=== PATIENT | male | born 1980 | race Caucasian/White ===

== ENCOUNTER 2018-07-16 19:19 | Emergency (ER) | payer OTHER ==
--- NOTE | 2018-07-16 19:32 | PDOC ---
Rapid Medical Evaluation Time Seen by Provider: 07/16/18 19:29 Medical Evaluation: 07/16/18 19:30 HPI: Rash on R arm x3 days PE: Raised spots difficult to see R upper arm ORDERS: Nothing Discharge Disposition - Diagnosis Rash and nonspecific skin eruption - Referrals - Patient Instructions - Post Discharge Activity
[2018-07-16 19:36] VITALS: BP 139/90; PULSE 64; TEMP 97.5; BMI 31.5
--- NOTE | 2018-07-16 20:17 | PDOC ---
History of Present Illness - General Chief Complaint: Rash Stated Complaint: ARM PAIN/RASH Time Seen by Provider: 07/16/18 19:29 History Source: Patient Exam Limitations: No Limitations - History of Present Illness Initial Comments: 07/16/18 20:29 Chief complaint: Rash Patient 38-year-old male who has rash to right upper arm for 3 days, patient has a tattoo there which is been there a while, shaves his arm. He was seen by sub arc operator week and a half ago, was starting to get better but now has gotten worse in the last 3 days. No fever and now it's itchy. She started Keflex yesterday Patient went to urgent care night and was given a prescription for Valtrex. Patient was concerned and came to the ER. GENERAL/CONSTITUTIONAL: No fever, weakness. dizziness HEAD, EYES, EARS, NOSE AND THROAT: No change in vision. No ear pain or discharge. No sore throat. CARDIOVASCULAR: No chest pain RESPIRATORY: No shortness of breath or cough GASTROINTESTINAL: No pain, nausea, vomiting, diarrhea or constipation GENITOURINARY: No dysuria MUSCULOSKELETAL: No neck or back pain SKIN: +rash NEUROLOGIC: No headache, vertigo, loss of consciousness, or loss of sensation. GENERAL: The patient is awake, alert, and fully oriented, in no acute distress. HEAD: Normal with no signs of trauma. EYES: Pupils equal, round and reactive to light, sclera anicteric, conjunctiva clear. ENT: pharynx: no erythema, no exudate, uvula midline NECK: supple CHEST: clear, nontender, rr ABD: soft, nontender EXTREMITIES: Upper extremity, shaved, tattoo to the whole arm, several raised round papule, several flat raised one to 2 cm lesions, no cellulitis or swelling. Patient did not have pain. Neurovascular intact. Rest of extremities, Normal range of motion, no edema. NEUROLOGICAL: Normal speech, normal gait. SKIN: Warm, Dry Past History - Past Medical History Allergies/Adverse Reactions: Allergies Allergy/AdvReac Type Severity Reaction Status Date / Time No Known Allergies Allergy Verified 07/16/18 19:33 Home Medications: Ambulatory Orders Escitalopram Oxalate [Lexapro -] 10 mg PO DAILY 07/16/18 Esomeprazole Magnesium [Nexium 24Hr] 20 mg PO ASDIR 07/16/18 Mupirocin Ointment [Bactroban 2% Ointment -] 1 applic TP TID #30 gm 07/16/18 COPD: No - Suicide/Smoking/Psychosocial Hx Smoking History: Never smoked Information on smoking cessation initiated: No Hx Alcohol Use: No Drug/Substance Use Hx: No *Physical Exam - Vital Signs Last Vital Signs Temp Pulse Resp BP Pulse Ox 97.5 F L 64 20 139/90 99 07/16/18 19:33 07/16/18 19:33 07/16/18 19:33 07/16/18 19:33 07/16/18 19:33 Medical Decision Making - Medical Decision Making 07/16/18 22:43 Patient with isolated rash to right upper arm where tattoo is for a long time, patient shaves arm. Was started on Keflex last week by sub arc operator for smaller amount of lesions. Patient was given prescription tonight at urgent care for Valtrex given spreading of raised itchy lesions. Has no fever and otherwise feels well. Unclear what rash specifically is, but seems reasonable to take the Keflex, and the Valtrex. Patient also works out at the gym. Will give Bactroban. Patient has sub arc operator to follow up with. He will do so on Thursday *DC/Admit/Observation/Transfer Diagnosis at time of Disposition: Rash and nonspecific skin eruption - Discharge Dispostion Disposition: HOME Condition at time of disposition: Stable Decision to Admit order: No - Prescriptions Prescriptions: Mupirocin Ointment [Bactroban 2% Ointment -] 1 applic TP TID #30 gm - Referrals Referrals: Deanna Guan MD [Primary Care Provider] - - Patient Instructions Additional Instructions: As discussed, it is not clear what is causing her rash. At this point you should continue the Keflex that your sub arc operator gave you, take the Valtrex that was also prescribed. We again and Bactroban cream to add in case of bacterial infection. Keep the area clean and dry, do not shave it. Follow-up with your sub arc operator and call them for an earlier appointment. Return to the ER if fever or feeling sicker - Post Discharge Activity
== END 2018-07-16 20:39 | disposition home or self-care (01) ==
LOC: JERFT 19:19
DX: R21 Rash and other nonspecific skin eruption (principal)
CPT/HCPCS: 99281-25